=== PATIENT | male | born 1955 | race Caucasian/White ===

== ENCOUNTER 2017-09-13 07:25 | Emergency (ER) | payer OTHER ==
[~2017-09-13] VITALS: Ht 177.8 cm; Wt 93.4 kg
[~2017-09-13 07:25] MED LIST: AMBIEN10 MG PO; FISH OIL1 CAP PO; GOOD SENSE ASP325 MG PO; LIPI20 PO; LISINOPRIL2.5 MG PO; MAGNESIUM OXID400 MG PO; MULTIVITAMIN1 TAB PO; NITROSTAT0.4 MG SL; XARELTO STARTER20 MG PO
[2017-09-13 07:29] VITALS: Ht 177.8 cm; Wt 93.4 kg
[2017-09-13 08:55] VITALS: BP 111/72
== END 2017-09-13 08:55 | disposition home or self-care (01) ==
LOC: ED 07:25
DX: S43.51XA Sprain of right acromioclavicular joint, initial encounter (principal); E78.00 Pure hypercholesterolemia, unspecified; E78.5 Hyperlipidemia, unspecified; V29.40XA Motorcycle driver injured in collision with unspecified motor vehicles in traffic accident, initial encounter; Y93.89 Activity, other specified; Y92.89 Other specified places as the place of occurrence of the external cause; Y99.8 Other external cause status